=== PATIENT | female | born 1990 | race Caucasian/White ===

== ENCOUNTER → 2022-11-27 | Outpatient (CLI) | payer BC ==
[~2022-11-27] MED LIST: CATHETER FLUSH 10 ML SYR IVP PRN; morphine INJ 10 MG/ML 1ML (SYR OR VIAL) IVP STA; morphine INJ 10 MG/ML 1ML (SYR OR VIAL) ONE
--- NOTE | 2022-11-27 14:57 | Diagnostic Imaging Report ---
INDICATION: Right upper quadrant abdominal pain. TECHNIQUE: Patient was administered 5.5 mCi technetium 99m Choletec intravenously and imaging over the abdomen was performed. After 60 minutes, gallbladder was not visualized. Therefore, 2.0 mg morphine sulfate was administered intravenously and additional 60 minutes of imaging was performed. There is homogeneous uptake of activity through the liver. There is prompt excretion of activity into the common duct with normal passage into the small bowel. After morphine administration, the gallbladder did visualize. Mild gastric reflux of bile is noted. IMPRESSION: Patent cystic duct and common bile duct. There was somewhat delayed visualization of the gallbladder which can be seen with chronic cholecystitis. In addition, there is mild gastric bile reflux. Dictated by: Dictated on workstation # [id number]
== END ==
LOC: CARD 10:00
PROVIDERS: ATTEND Nurse Practitioner Family
DX: K21.9 Gastro-esophageal reflux disease without esophagitis (principal)
CPT/HCPCS: 78226; A9537

== ENCOUNTER 2022-12-24 05:33 | Outpatient (CLI) | payer BC ==
[~2022-12-24] VITALS: Ht 160 cm; Wt 63.0 kg
[2022-12-24] MEDS ORDERED: ALPR1TAB7 PO (08:50)
[2022-12-24] MEDS ORDERED: ETHI1TAB19 PO (08:50)
[2022-12-24] MEDS ORDERED: CYCL10TA25 PO (08:50)
[2022-12-24] MEDS ORDERED: NF-ADXR10C PO (08:50)
[2022-12-31] MEDS ORDERED: TRAM50TA3 PO (09:38)
[2023-01-01] MEDS ORDERED: ACHD5005 PO (17:23)
== END 2022-12-24 09:23 | disposition home or self-care (01) ==
LOC: PREOP 05:33
PROVIDERS: ATTEND Surgery
DX: Z01.818 Encounter for other preprocedural examination (principal)

== ENCOUNTER 2022-12-31 06:56 | Day surgery (SDC) | payer BC ==
[2022-12-31] VITALS (11 sets, daily range): BP systolic 111–137; BP diastolic 69–101
[~2022-12-31] VITALS: Ht 160 cm; Wt 63.5 kg
[~2022-12-31 06:56] MED LIST changes: +ALPR1TAB7 PO; -CATHETER FLUSH 10 ML SYR IVP PRN; +CYCL10TA25 PO; +ETHI1TAB19 PO; +NF-ADXR10C PO; -morphine INJ 10 MG/ML 1ML (SYR OR VIAL) IVP STA; -morphine INJ 10 MG/ML 1ML (SYR OR VIAL) ONE
[2022-12-31] MEDS ORDERED: LIDOCAINE/EPI 1%-1:100,000 (XYLOCAINE) 20ML ONE (07:23)
[2022-12-31] MEDS ORDERED: fentaNYL INJ 100 MCG/2 ML AMP ONE (07:37)
[2022-12-31] MEDS ORDERED: GLYCOPYRROLATE 0.2 MG/ML (ROBINUL) 2 ML VIAL ONE (07:37)
[2022-12-31] MEDS ORDERED: proPOfol 200 MG/20 ML (DIPRIVAN) VIAL IV ONE (07:37)
[2022-12-31] MEDS ORDERED: ONDANSETRON 4 MG/2 ML (SDV) Z0FRAN ONE (07:37)
[2022-12-31] MEDS ORDERED: NEOSTIGMINE (BLOXIVERZ ) 1 MG/1ML 10 ML VIAL ONE (07:37)
[2022-12-31] MEDS ORDERED: MIDAZOLAM 2 MG/2 ML (VERSED) VIAL ONE (07:37)
[2022-12-31] MEDS ORDERED: LIDOCAINE PF 2% 5 ML (XYLOCAINE) VIAL ONE (07:37)
[2022-12-31] MEDS: LACTATED RINGERS 1,000 ML IV PRN ×2 (07:50→08:49)
[2022-12-31] MEDS ORDERED: ceFAZolin INJECTION 2,000 MG ONE (07:58)
[2022-12-31] MEDS ORDERED: NS (IVPB) 50 ML ONE (07:59)
--- NOTE | 2022-12-31 08:02 | Progress Note-Pre Operative ---
Pre-Operative Progress Note Date H&P Reviewed: Dec 31, 2022 Time H&P Reviewed: 07:51 History & Physical: H&P Reviewed, Patient Examed, No changes noted Pre-Operative Diagnosis: epigstric pain, chronic cholecystitis MIRANDA ARMIJO DO Dec 31, 2022 08:02
[2022-12-31] MEDS ORDERED: ceFAZolin INJECTION 2,000 MG in NS (IVPB) 50 ML IV ONE (08:15)
[2022-12-31] MEDS ORDERED: ROCURONIUM 50 MG/5 ML (ZEMURON) VIAL IV ONE (09:03)
[2022-12-31] MEDS ORDERED: HYDROmorphone 2 MG/ML VIAL (DILAUDID) ONE ×2 (09:16→09:45)
[2022-12-31] MEDS ORDERED: SEVOFLURANE (ULTANE) 15 ML INHAL SOLN ONE (09:20)
[2022-12-31] MEDS ORDERED: LIDOCAINE/EPI 1%-1:100,000 (XYLOCAINE) 20ML INJ ONE (09:22)
[2022-12-31] MEDS ORDERED: IOHEXOL 300 MG/ML 30 ML (OMNIPAQUE 300) VIAL INJ ONE (09:24)
--- NOTE | 2022-12-31 09:36 | Progress Note-Post Operative ---
Post-Operative Progess Note Surgeon (s)/Legal Researcher (s) Surgeon MIRANDA ARMIJO DO Legal Researcher: Dr. Fields to assist in retraction dissection and closure. Pre-Operative Diagnosis epigstric pain, chronic cholecystitis Post-Operative Diagnosis epigastric pain, chronic cholecystitis, intraperitoneal leisons on liver, small bowel and bladder Procedure & Operative Findings Date of Procedure 12/31/22 Procedure Performed/Findings PROCEDURE: Laparoscopic cholecystectomy with intraoperative cholangiogram. COMPLICATIONS: None. PROCEDURE: The patient was taken to the operating suite and was prepped and draped in sterile fashion. A surgical pause was performed. Just superior to the umbilicus, a 12 mm incision was made. Dissection was taken down to the fascia, which was then scored and grasped with a Jaqueline and the abdomen was then entered. A 0 Vicryl suture was placed in a [id number] fashion and a Mckeon trocar was placed and secured. Pneumoperitoneum was achieved. A 5mm trochar place in the subxyphoid and 2 in the right upper quadrant. The gallbladder was then grasped and elevated. Adhesions taken down with blunt and cautery dissection. The cystic duct, and cystic artery were then dissected out. Clip was placed on the distal portion of the cystic duct which was then partially transected. An arrow catheter was inserted into the duct. The cholangiogram was then performed. No filing defects and contrast made its way into the duodenum. Catheter removed. Clips were placed on proximal portion of the cystic duct and then the duct was then transected. Clips were placed along the proximal and distal portion of the cystic artery which was then transected. Hook cautery was used to dissect the gallbladder from the gallbladder fossa achieving hemostasis. The gallbladder was placed in an Endobag and removed through the 12 mm trocar site. The abdomen was then reinspected. Small white/cervantes lesions on liver, small bowel and bladder present. These left and right ovaries inspected and appeared normal. These lesions on the liver were biopsied using biopsy forceps. Hemastasis was achieved with cautery. Copious amounts of irrigation were used to irrigate the abdomen and there were no signs of active bleeding. Hemostasis had been achieved. The 12 mm fascial defect was then closed with 0 Vicryl suture that had been placed in a [id number] fashion. The abdomen was then desufflated, the trocars were removed. The abdomen was then washed and dried. The skin was then closed using 4-0 Monocryl in a subcuticular fashion. The abdomen was washed and dried and Skin Affix was place over incisions. Patient tolerated the procedure well without any complications and was taken to the recovery room in stable condition. Anesthesia Type General Estimated Blood Loss Estimated blood loss (mL): minimal Specimens/Packing Specimens Removed gallbladder, intraperitoneal biopsy of liver MIRANDA ARMIJO DO Dec 31, 2022 09:36
[2022-12-31] MEDS ORDERED: TRAM50TA3 PO (09:38)
--- NOTE | 2022-12-31 09:39 | Discharge Inst-Simple/Standard ---
Discharge Inst-Standard Discharge Medications New, Converted or Re-Newed RX: Transmitted to Pharmacy Patient Instructions/Follow Up Plan of Care/Instructions/FU: 2 weeks Breana Activity as Tolerated: No Discharge Diet: Regular Diet Other Inst to Patient Follow up Appt: Make appointment for 2 weeks. Instructions: No lifting greater than 10 pounds. No strenuous activity. May shower in 24 hours, no tub bath or soaking. Use incentive spirometer at home as directed. No Smoking Skin/Wound Care: You have special glue over incision, it will fall off on it's own. Symptoms to Report: Appetite Changes, Extremity Discoloration, Numbness/Tingling, Swelling Increased, Bleeding Excessive, Eyesight Changes, Pain Increased, Urine Color Change, Constipation(Persistent), Fever over 101 degree F, Pain/Pressure in chest, Urinating Difficulty, Cough Up/Vomit Blood, Heart Beat Irreg/Pounding, Pain/Pressure in jaw, Vaginal Bleeding Increase, Cramps in feet or legs, Lightheadedness, Pain/Pressure in shoulder, Diarrhea(Persistent), Memory Changes Suddenly, Questions/Concerns, Weight gain consecutive days, Dizziness/Fainting, Nausea/Vomiting, Shortness of Breath, Weight gain over 2 pounds. If eyes or skin turn yellow notify physician. If questions or concerns contact your physician Or seek help at emergency department. MIRANDA ARMIJO DO Dec 31, 2022 09:39
[2022-12-31] MEDS ORDERED: morphine INJ 10 MG/ML 1ML (SYR OR VIAL) IVP ONE (09:45)
[2022-12-31] MEDS ORDERED: HYDROmorphone 2 MG/ML VIAL (DILAUDID) IV ONE (09:45)
[2022-12-31] MEDS: ONDANSETRON 4 MG/2 ML (SDV) Z0FRAN IVP PRN ×2 (10:32→11:30)
--- NOTE | 2022-12-31 11:18 | Diagnostic Imaging Report ---
Reason for exam: Right upper quadrant pain. Laparoscopic cholecystectomy and cholangiogram. Comparison: 11/27/2022. Technique: 28 intraoperative fluoroscopic images of the right upper quadrant. Fluoroscopic Time: 6.8 seconds Ka,r = 2.4 mGy Findings/ Impression: Intraoperative fluoroscopic images were obtained during laparoscopic cholecystectomy and cholangiogram. Dictated by: Dictated on workstation # [id number]
--- NOTE | 2022-12-31 11:48 | Anesthesia-General Post-Op ---
General Patient Condition Mental Status/LOC: Same as Preop Cardiovascular: Satisfactory Nausea/Vomiting: Absent Respiratory: Satisfactory Pain: Controlled Complications: Absent Post Op Complications Complications None Follow Up Care/Instructions Patient Instructions None needed. Anesthesia/Patient Condition Patient Condition Patient is doing well, no complaints, stable vital signs, no apparent adverse anesthesia problems. No complications reported per nursing. GINA KHOURY DO Dec 31, 2022 11:48
[2023-01-01] MEDS ORDERED: ACHD5005 PO (17:23)
--- NOTE | 2023-01-11 13:18 | Progress Note ---
Standard Progress Note Progress Notes/Assess & Plan Date Seen by a Provider: Dec 31, 2022 Time Seen by a Provider: 09:30 Progress/Assessment & Plan Addendum to Anesthesia Record: Pt was given a second dose of hydromorphone 0.5 mg IV at 0930 prior to her extubation in the operating room. She was tachypnic and a second dose was given for pain prior to extubation and leaving the operating room. This was inadvertantly omitted from the anesthesia record and a total of 1 mg of hydromorphone was given IV by me in the operating room. GINA KHOURY DO Jan 11, 2023 13:18
== END 2022-12-31 11:40 ==
LOC: SDC 06:56
PROVIDERS: ATTEND Surgery
DX: K81.1 Chronic cholecystitis (principal); K75.3 Granulomatous hepatitis, not elsewhere classified
CPT/HCPCS: 76000; 84703; 87081